=== PATIENT | female | born 1955 | race African-American/Black ===

== ENCOUNTER → 2016-09-03 | Outpatient (CLI) | payer MEDICAID ==
--- NOTE | ~2016-09-03 | US77 ---
[facility] A Service of [facility] RADIOLOGY TEXT RESULTS PATIENT: EDEL LOPEZ LOCATION: [facility] : 57 UNIT #: [id number] AGE: [address]: Presley Fatima MD SEX: F ORDER DR: [id number] [facility] [address] [place], [place] [address] [id number] O MR#: [id number] Acc #: [id number] NAME: EDEL LOPEZ : 1955 SEX: F STUDY DATE/TIME: 09/03/2016 12:51 UNIT: [facility] ROOM: STUDY DESCRIPTION: US Kidney Bilateral Complete Attending Physician: Presley Fatima M.D. Referring Physician: Presley Fatima M.D. Ordering Physician: Presley Fatima M.D. Primary Care Physician: Kathrine Erickson Aprn MEDICAL IMAGING REPORT This report is preliminary unless electronic signature is present EXAM Renal ultrasound. DATE OF EXAM 09/03/2016 HISTORY Chronic kidney disease stage 3, follow up. FINDINGS Right kidney measured 10.2 cm while the left kidney measured approximately 10 cm in longitudinal dimensions. There is no evidence of hydronephrosis or nephrolithiasis. No cystic or solid mass lesions were seen on either kidney. The bladder was noted to be distended with urine, but otherwise normal. IMPRESSION 1. Negative renal ultrasound. 2. Images of the bladder are normal. Dictated by... Polo Perrin M.D. THIS IS AN ELECTRONICALLY VERIFIED REPORT Polo Perrin M.D. at 09/04/2016 2:25 PM TORI/dominguez TD: 09/03/2016 20:25 JOB #: [id number] MEDICAL IMAGING REPORT COPY
[2016-09-03 13:02] LABS: HEMATOCRIT 36.8 % (35.0-45.0); HEMOGLOBIN 11.7 gm/dL (12.0-16.0); MEAN CORPUSCULAR HEMOGLOBIN 28.1 PG (28-34); MEAN CORPUSCULAR HGB CONC 31.9 g/dL (30-36); MEAN PLATELET VOLUME 9.8 FL (6.5-11.5); RED BLOOD COUNT 4.18 X10e (3.90-5.30); RED CELL DISTRIBUTION WIDTH 14.2 % (11.0-15.5); WHITE BLOOD COUNT 9.6 X10e3 (4.0-10.5)
[2016-09-03 13:10] LABS: URINE APPEARANCE CLEAR; URINE BILIRUBIN NEG (NEG); URINE BLOOD NEG (NEG); URINE COLOR YELLOW; URINE GLUCOSE NEG (NEG); URINE KETONE NEG (NEG); URINE LEUKOCYTE ESTERASE TRACE (NEG); URINE NITRATE NEG (NEG); URINE PH 5.5 (5-8); URINE PROTEIN NEG (NEG); URINE SPECIFIC GRAVITY 1.007 (1.003-1.035); URINE UROBILINOGEN 0.2 MG/DL (NEG)
[2016-09-03 13:12] LABS: U HYALINE CASTS AUWI 0-2 /[LPF]; URBCS1 AUWI 0-2 /[HPF] (0-2); URINE BACTERIA AUWI NEG (NEGATIVE); URINE SQUAMOUS EPITHELIAL CELL NONE SEEN /[HPF]
[2016-09-03 13:13] LABS: URINE SOURCE CLEAN CATCH
[2016-09-03 13:22] LABS: CREATININE,RANDOM URINE 36 mg/dL; TOTAL PROTEIN,RANDOM URINE <10 mg/dl (<10)
[2016-09-03 13:35] LABS: BLOOD UREA NITROGEN 19 mg/dL (9-23); CARBON DIOXIDE 25 mmol/L (22-31); CHLORIDE 101 mmol/L (100-111); GLOM FILT RATE Estimated ABOVE60 mL/min (>60); GLUCOSE FASTING 104 mg/dL (70-110); IRON SERUM 68 ug/dL (28-170); PHOSPHOROUS 3.2 mg/dL (2.5-4.6); POTASSIUM 3.9 mmol/L (3.5-5.1); SODIUM 132 mmol/L (135-145); TOTAL IRON BINDING CAPACITY 290 ug/dL (269-535); TRANSFERRIN 207 mg/dL (192-382); TRANSFERRIN SATURATION 23 % (20-50); URIC ACID 8.1 mg/dL (2.6-7.2)
== END | disposition home or self-care (01) ==
LOC: CLAB 12:08
PROVIDERS: Internal Medicine Nephrology
DX: I12.9 Hypertensive chronic kidney disease with stage 1 through stage 4 chronic kidney disease, or unspecified chronic kidney disease (principal); N18.3 Chronic kidney disease, stage 3 (moderate); E55.9 Vitamin D deficiency, unspecified
CPT/HCPCS: 36415; 76770; 80048; 81003; 82306; 82570; 82728; 83036; 83540; 83550; 84100; 84156; 84550; 85027

== ENCOUNTER → 2016-12-17 | Outpatient (CLI) | payer MEDICAID ==
[2016-12-17 09:14] LABS: HEMOGLOBIN 11.9 gm/dL (12.0-16.0); MEAN CELL VOLUME 87.6 FL (83-96); MEAN CORPUSCULAR HEMOGLOBIN 28.2 PG (28-34); MEAN CORPUSCULAR HGB CONC 32.2 g/dL (30-36); MEAN PLATELET VOLUME 9.8 FL (6.5-11.5); RED BLOOD COUNT 4.22 X10e (3.90-5.30); RED CELL DISTRIBUTION WIDTH 14.5 % (11.0-15.5); WHITE BLOOD COUNT 9.1 X10e3 (4.0-10.5)
[2016-12-17 09:44] LABS: BUN/CREATININE RATIO 22.72; CALCIUM SERUM 9.6 mg/dL (8.4-10.2); CREATININE SERUM 1.1 mg/dL (0.6-1.4); GLOM FILT RATE Estimated 63.2 mL/min (>60); POTASSIUM 3.9 mmol/L (3.5-5.1)
== END | disposition home or self-care (01) ==
LOC: CLAB 08:32
PROVIDERS: Internal Medicine Nephrology
DX: N18.3 Chronic kidney disease, stage 3 (moderate) (principal); E55.9 Vitamin D deficiency, unspecified
CPT/HCPCS: 36415; 80048; 85027